=== PATIENT | female | born 1955 | race Caucasian/White ===

== ENCOUNTER 2017-11-29 10:32 | Emergency (ER) | payer OTHER ==
[2017-11-29 10:38] VITALS: BP 139/88
--- NOTE | 2017-11-29 10:52 | EDPHY ---
H & P Time Seen by Provider: 11/29/17 10:42 HPI/ROS: Chief complaint. Floaters in eye HPI. 62-year-old female presents emergency department with sudden onset yesterday afternoon of awareness of strings in black floaters in her visual field of her right eye. She did not notice any preceding thibodeaux or flashes of light. She has no eye pain. Symptoms were worse when she when outside in the sun. Her symptoms are better today and that she has less awareness of the floaters though they are still present. Again no eye pain. The left eye is fine. She has no eye history other than corrective lenses. No similar symptoms previously ROS Constitutional. no fever/chills, no weakness Eyes. Floaters in the right eye ENT. no sore throat, no nasal drainage Cardiovascular. no chest pain Respiratory. no shortness of breath, no cough Abdominal. no abdominal pain, no nausea/vomiting, no diarrhea . no problems urinating MS. no calf pain/swelling, no neck/back pain, no joint pain Skin. no rash Lymph. no swollen glands Neuro. no headache, no dizziness, no difficulty walking or with speech Past Medical/Surgical History: Seizure disorder and patient takes Lamictal Social History: , nonsmoker, no alcohol Smoking Status: Never smoked Physical Exam: General Appearance: Alert pleasant well-developed female mild distress vital signs are stable Eyes: Pupils equal and round no pallor or injection. Retina appears normal. I am unable to see hemorrhage. Fundus appears normal ENT, Mouth: Mucous membranes are moist. Respiratory: There are no retractions, lungs are clear to auscultation. Cardiovascular: Regular rate and rhythm. Gastrointestinal: Abdomen is soft and nontender, no masses, bowel sounds normal. Neurological: Awake and alert, sensory and motor exams grossly normal. Skin: Warm and dry, no rashes. Musculoskeletal: Neck is supple nontender. Extremities symmetrical, full range of motion. Psychiatric: Patient is oriented X 3, there is no agitation. Constitutional: Initial Vital Signs Temperature (C) 36.6 C 11/29/17 10:36 Heart Rate 112 H 11/29/17 10:36 Respiratory Rate 20 11/29/17 10:36 Blood Pressure 139/88 H 11/29/17 10:36 O2 Sat (%) 97 11/29/17 10:36 O2 Delivery Mode Room Air Allergies/Adverse Reactions: No Known Allergies Allergy (Unverified 11/29/17 10:36) Home Medications: Medication Instructions Recorded LaMICtal 11/29/17 Medical Decision Making Procedures: Visual acuities are 20/25 bilaterally with corrective lenses ED Course/Re-evaluation: Patient remained stable I consulted and discussed the case with Dr. Townsend for ophthalmology and she will see the patient in the office this morning. I discussed this treatment plan with the patient and her . They expressed understanding and agreement Differential Diagnosis: Likely this is vitreous hemorrhage. I considered retinal detachment as well. Departure - Departure Disposition: Home, Routine, Self-Care Clinical Impression: Vitreous hemorrhage of right eye Condition: Good Instructions: Blurred Vision (ED) Additional Instructions: Dr. Khan, opthamology, will see you in the office right now. Please go to her office for further evaluation Referrals: Luis Bradshaw MD [Primary Care Provider] - As per Instructions Sarah Khan MD [Non Staff Provider ()] - 1 day without fail
== END 2017-11-29 11:29 | disposition home or self-care (01) ==
DX: H43.11 Vitreous hemorrhage, right eye (principal)